=== PATIENT | male | born 1970 | race Caucasian/White ===

== ENCOUNTER 2017-09-16 14:25 | Emergency (ER) | payer SELFPAY ==
[~2017-09-16] VITALS: Ht 181.6 cm; Wt 76.0 kg
[~2017-09-16 14:25] MED LIST: CIPR-9 PO
[2017-09-16 14:29] VITALS: BP 126/74; PULSE 102; RESP 14; TEMP 98.8; O2SAT 99
[2017-09-16] MEDS ORDERED: cefTRIAXone 250 MG VIAL IM ONE (15:15)
[2017-09-16] MEDS ORDERED: AZITHROMYCIN PWD FOR SUSP 1 GM PACKET PO ONE (15:15)
[2017-09-16] MEDS ORDERED: LIDOCAINE HCL 1% 50 ML VIAL XX ONE (15:15)
[2017-09-16] MEDS ORDERED: SODIUM CHLORIDE 0.9% FLUSH 10 ML FLUSH IVF PRN (15:15)
[2017-09-16 16:14] LABS: BACTERIA, URINE FEW /hpf; BLOOD, URINE SMALL (NEG); GLUCOSE,URINE NEG (NEG); KETONE, URINE TRACE mg/dL (NEG); MUCUS URINE MANY /lpf (OCC); NITRITE,URINE NEG (NEG); URINE COLOR YELLOW (YELLW/STRAW); URINE LEUKOCYTE ESTERASE LARGE (NEG)
[2017-09-16 16:16] LABS: BILIRUBIN, URINE NEG (NEG)
[2017-09-16] MEDS ORDERED: CIPR-9 PO (16:32)
--- NOTE | 2017-09-16 16:32 | PD ---
HPI Chief Complaint: Complaint Time Seen by Provider: 14:52 Travel History International Travel<30 days: No Contact w/Intl Traveler<30days: No Traveled to known affect area: No History of Present Illness HPI 46-year-old male complains of penile discharge for 3-4 days. He denies arthralgias and rash. No fever. No nausea vomiting. He reports some pain that he believes might be the kidneys. No testicular or perineal pain. No vomiting or nausea. Severity moderate. Timing constant. PFSH Past Medical History Integumentary: Yes (FUNGAL INFECTION IN GROIN) Immunizations Current: Yes Past Surgical History Ear Surgery: Yes (EARDRUM RECONSTRUCTION) Social History Alcohol Use: Yes (occasionally) Tobacco Use: Yes (1ppd) Substance Use: Yes (cocaine, marajuiana ) Allergies-Medications (Allergen,Severity, Reaction): Coded Allergies: bee venom protein (honey bee) (Unverified Allergy, Severe, 09/16/17) Sulfa (Sulfonamide Antibiotics) (Unverified Allergy, Unknown, 09/16/17) Reported Meds & Prescriptions Reported Meds & Active Scripts Active Cipro (Ciprofloxacin HCl) 500 Mg Tab 500 Mg PO BID 7 Days Review of Systems Except as stated in HPI: all other systems reviewed are Neg General / Constitutional: No: Fever Physical Exam Narrative GENERAL: Well-nourished 46-year-old male pleasant GENITOURINARY: There is trace free discharge at the meatus. No balanitis. Glans and testicles otherwise normal. SKIN: Focused skin assessment warm/dry. No rash. HEAD: Atraumatic. Normocephalic. EYES: Pupils equal and round. No scleral icterus. No injection or drainage. ENT: No nasal bleeding or discharge. Mucous membranes pink and moist. NECK: Trachea midline. No JVD. CARDIOVASCULAR: Regular rate and rhythm. No murmur appreciated. RESPIRATORY: No accessory muscle use. Clear to auscultation. Breath sounds equal bilaterally. GASTROINTESTINAL: Abdomen soft, non-tender, nondistended. Hepatic and splenic margins not palpable. MUSCULOSKELETAL: No obvious deformities. No clubbing. No cyanosis. No edema. NEUROLOGICAL: Awake and alert. No obvious cranial nerve deficits. Motor grossly within normal limits. Normal speech. PSYCHIATRIC: Appropriate mood and affect; insight and judgment normal. Data Data Last Documented VS Vital Signs Date Time Temp Pulse Resp B/P (MAP) Pulse Ox O2 Delivery O2 Flow Rate FiO2 09/16/17 14:29 98.8 102 14 126/74 (91) 99 Vital signs reviewed Orders Orders Ua Includes Microscopic (09/16/17 15:01) Gc And Chlamydia Pcr (09/16/17 15:01) Azithromycin Powd Pack (Zithromax Powd P (09/16/17 15:15) Ceftriaxone Inj (Rocephin Inj) (09/16/17 15:15) Sodium Chloride 0.9% Flush (Ns Flush) (09/16/17 15:15) Lidocaine 1% Inj (50 Ml) (Xylocaine 1% I (09/16/17 15:15) Labs Laboratory Tests Test 09/16/17 15:05 [facility] Medical Decision Making Medical Screen Exam Complete: Yes Emergency Medical Condition: Yes Medical Record Reviewed: Yes Differential Diagnosis uti, gc chlamydia, balanitis Narrative Course Urinalysis is UTI. The patient has received coverage for gonorrhea and chlamydia. We'll send him home with Cipro. Diagnosis Primary Impression: UTI (urinary tract infection) Qualified Codes: N30.00 - Acute cystitis without hematuria Additional Impression: Penile discharge Referrals: Primary Care Physician 2 days Med/Other Pt SpecificInfo: Prescription(s) given Scripts Ciprofloxacin (Cipro) 500 Mg Tab 500 MG PO BID for Infection for 7 Days, TAB 0 Refills Prov: Sim Samayoa MD 09/16/17 Disposition: DISCHARGE HOME Condition: Stable Sim Samayoa MD Sep 16, 2017 16:32
== END 2017-09-16 16:50 | disposition home or self-care (01) ==
LOC: NEPD 14:25
DX: N30.00 Acute cystitis without hematuria (principal); F17.200 Nicotine dependence, unspecified, uncomplicated
CPT/HCPCS: 81001; 87491; 87591; 96372; 99283; J0696